=== PATIENT | female | born 1960 | race African-American/Black ===

== ENCOUNTER 2016-05-01 16:14 | Emergency (ER) | payer MEDICAID ==
[~2016-05-01] VITALS: Ht 162.6 cm; Wt 63.5 kg
[2016-05-01 20:22] VITALS: BP 157/93
[2016-05-01] MEDS ORDERED: ALBUTEROL SULF 2.5 MG/0.5ML(0.5%) NEB SOLN NEB ONE (20:30)
[2016-05-01] MEDS ORDERED: IPRATROPIUM BROM 0.5 MG/2.5ML INH SOL NEB ONE (20:30)
== END 2016-05-01 21:03 | disposition home or self-care (01) ==
LOC: ER 16:18
DX: J45.901 Unspecified asthma with (acute) exacerbation (principal); I10 Essential (primary) hypertension; E07.9 Disorder of thyroid, unspecified
CPT/HCPCS: 94640

== ENCOUNTER 2017-08-09 11:31 | Emergency (ER) | payer MEDICAID ==
[~2017-08-09] VITALS: Ht 162.6 cm; Wt 77.8 kg
[2017-08-09 13:39] LABS: Eosinophils # (auto) 0.8 uL
[2017-08-09 13:41] LABS: Basophils # (auto) 0 uL; Basophils % (auto) 0.6 % (0.0-2.0); Hematocrit 37.2 % (36.0-46.0); Hemoglobin 12.4 g/dL (12.2-16.2); Lymphocytes # (auto) 1.9 uL; Lymphocytes % (auto) 38.3 % (10.0-50.0); Mean Corpuscular Hemoglobin 38.7 pg (28.0-32.0); Mean Corpuscular Hgb Conc. 33.3 g/dL (32.0-36.0); Mean Corpuscular Volume 116.1 fL (80.0-100.0); Monocytes # (auto) 0.2 uL; Monocytes % (auto) 3.6 % (0.0-12.0); Neutrophils # (auto) 2.1 uL; Neutrophils % (auto) 40.9 % (37.0-80.0); Nucleated Red Blood Cells % 0.1 %; Platelet Count (auto) 227 10^3/uL (140-450); Red Cell Distribution Width 14.1 % (11.8-14.3)
[2017-08-09 14:05] LABS: Eosinophils % (auto) 16.6 % (0.0-7.0)
[2017-08-09 14:26] LABS: Alanine Aminotransferase 17 U/L (13-56); Albumin 3.9 g/dL (3.4-5.0); Alkaline Phosphatase 66 U/L (45-117); Anion Gap 8 (5-15); Aspartate Aminotransferase 12 U/L (15-37); BUN/Creatinine Ratio 15.5; Bilirubin, Total 0.3 mg/dL (0.2-1.0); Blood Urea Nitrogen 16 mg/dL (7-18); Calcium 8.5 mg/dL (8.5-10.1); Carbon Dioxide 27 mmol/L (21-32); Chloride 109 mmol/L (98-107); GFR African American 71 mL/min; GFR Non-African American 58 mL/min; Glucose 95 mg/dL (74-106); Potassium 4.3 mmol/L (3.5-5.1); Sodium 144 mmol/L (136-145); Total Protein 7.7 g/dL (6.4-8.2)
[2017-08-09 18:02] VITALS: BP 146/114
[2017-08-09 18:56] LABS: Urine Bacteria NONE SEEN /hpf (None Seen); Urine Blood Negative /uL (Negative); Urine Mucus FEW (None Seen); Urine Specific Gravity 1.025 (1.001-1.035); Urine WBC 2 /hpf (0 - 5)
== END 2017-08-10 00:10 | disposition home or self-care (01) ==
LOC: ER 11:31
DX: J20.9 Acute bronchitis, unspecified (principal); J45.909 Unspecified asthma, uncomplicated; E07.9 Disorder of thyroid, unspecified; I10 Essential (primary) hypertension
CPT/HCPCS: 36415; 71046; 80053; 81001; 84484; 85025; 93005

== ENCOUNTER 2017-11-05 19:33 | Emergency (ER) | payer MEDICAID ==
[~2017-11-05] VITALS: Ht 162.6 cm; Wt 75.8 kg
[2017-11-05 19:52] VITALS: BP 162/98
[2017-11-05] MEDS ORDERED: LIDOCAINE 1% HCL (LOCAL ANESTH.) INJ 20ML MDV ONE (23:57)
[2017-11-06] MEDS ORDERED: ALBUTEROL SULF 2.5 MG/0.5ML(0.5%) NEB SOLN NEB ONE
[2017-11-06] MEDS ORDERED: TRIAMCINOLONE 40MG/ML 1ML VIAL IM ONE
[2017-11-06] MEDS ORDERED: IPRATROPIUM BROM 0.5 MG/2.5ML INH SOL NEB ONE
== END 2017-11-06 00:35 | disposition home or self-care (01) ==
LOC: ER 19:33
DX: J45.909 Unspecified asthma, uncomplicated (principal); I10 Essential (primary) hypertension
CPT/HCPCS: 71046; 94640; 96372; 99284; J2001; J3301

== ENCOUNTER 2017-11-26 11:00 | Emergency (ER) | payer MEDICAID, OTHER ==
[~2017-11-26] VITALS: Ht 162.6 cm; Wt 99.8 kg
[2017-11-26 11:15] VITALS: BP 137/85
[2017-11-26] MEDS ORDERED: cefTRIAXone SOD 1,000 MG VL IM ONE (12:15)
== END 2017-11-26 12:34 | disposition home or self-care (01) ==
LOC: ER 11:00
DX: J02.9 Acute pharyngitis, unspecified (principal); J45.909 Unspecified asthma, uncomplicated; I10 Essential (primary) hypertension; E07.89 Other specified disorders of thyroid
CPT/HCPCS: 96372; 99283; J0696

== ENCOUNTER 2017-12-26 08:04 | Emergency (ER) | payer MEDICAID, OTHER ==
[~2017-12-26] VITALS: Ht 162.6 cm; Wt 76.7 kg
[2017-12-26 08:55] LABS: Urine Bacteria FEW /hpf (None Seen); Urine Blood Negative /uL (Negative); Urine Mucus FEW (None Seen); Urine Specific Gravity 1.026 (1.001-1.035); Urine WBC 4 /hpf (0 - 5)
[2017-12-26 09:43] LABS: Basophils # (auto) 0 uL; Eosinophils # (auto) 0.2 uL; Eosinophils % (auto) 3.9 % (0.0-7.0); Lymphocytes # (auto) 1.7 uL; Nucleated Red Blood Cells % 0.1 %
[2017-12-26 09:45] LABS: Hematocrit 37.1 % (36.0-46.0); Hemoglobin 12.3 g/dL (12.2-16.2); Lymphocytes % (auto) 37.1 % (10.0-50.0); Mean Corpuscular Hemoglobin 38.9 pg (28.0-32.0); Mean Corpuscular Hgb Conc. 33.1 g/dL (32.0-36.0); Monocytes # (auto) 0.2 uL; Monocytes % (auto) 4.8 % (0.0-12.0); Neutrophils # (auto) 2.5 uL; Neutrophils % (auto) 53.2 % (37.0-80.0); Platelet Count (auto) 182 10^3/uL (140-450); Red Blood Cells 3.15 10^6/uL (4.0-5.20); Red Cell Distribution Width 15.3 % (11.8-14.3); White Blood Cell 4.6 10^3/uL (4.4-10.8)
[2017-12-26 09:56] LABS: Mean Corpuscular Volume 117.7 fL (80.0-100.0)
[2017-12-26 10:09] LABS: Alanine Aminotransferase 22 U/L (13-56); Albumin 4.1 g/dL (3.4-5.0); Alkaline Phosphatase 56 U/L (45-117); Anion Gap 5 (5-15); Aspartate Aminotransferase 15 U/L (15-37); BUN/Creatinine Ratio 14.3; Bilirubin, Total 0.7 mg/dL (0.2-1.0); Blood Urea Nitrogen 17 mg/dL (7-18); Calcium 8.7 mg/dL (8.5-10.1); Carbon Dioxide 26 mmol/L (21-32); Chloride 111 mmol/L (98-107); GFR African American 60 mL/min; GFR Non-African American 49 mL/min; Glucose 92 mg/dL (74-106); Potassium 3.7 mmol/L (3.5-5.1); Sodium 142 mmol/L (136-145)
[2017-12-26 10:34] VITALS: BP 134/99
== END 2017-12-26 10:23 | disposition home or self-care (01) ==
LOC: ER 08:04
DX: N39.0 Urinary tract infection, site not specified (principal); E03.9 Hypothyroidism, unspecified; J45.909 Unspecified asthma, uncomplicated; I10 Essential (primary) hypertension
CPT/HCPCS: 36415; 71045; 80053; 81001; 84443; 84484; 85025; 93005; 94761

== ENCOUNTER 2018-03-01 16:59 | Emergency (ER) | payer MEDICAID ==
[~2018-03-01] VITALS: Ht 162.6 cm; Wt 74.4 kg
[2018-03-01 18:14] VITALS: BP 153/85
[2018-03-01] MEDS ORDERED: IPRATROPIUM BROM 0.5 MG/2.5ML INH SOL NEB ONE (19:15)
[2018-03-01] MEDS ORDERED: ALBUTEROL SULF 2.5 MG/0.5ML(0.5%) NEB SOLN NEB ONE (19:15)
[2018-03-01] MEDS ORDERED: methylPREDNISolone SOD SUCC 125 MG/2 ML VL IM ONE (19:15)
[2018-03-01 20:42] LABS: Basophils # (auto) 0 uL; Eosinophils # (auto) 0.4 uL; Hematocrit 37.6 % (36.0-46.0); Hemoglobin 12.6 g/dL (12.2-16.2); Lymphocytes # (auto) 2.5 uL; Monocytes # (auto) 0.2 uL; Red Blood Cells 3.17 10^6/uL (4.0-5.20)
[2018-03-01 20:45] LABS: Basophils % (auto) 0.8 % (0.0-2.0); Eosinophils % (auto) 8.1 % (0.0-7.0); Lymphocytes % (auto) 47.8 % (10.0-50.0); Mean Corpuscular Hemoglobin 39.7 pg (28.0-32.0); Mean Corpuscular Hgb Conc. 33.5 g/dL (32.0-36.0); Mean Corpuscular Volume 118.5 fL (80.0-100.0); Monocytes % (auto) 3.1 % (0.0-12.0); Neutrophils # (auto) 2.1 uL; Neutrophils % (auto) 40.2 % (37.0-80.0); Nucleated Red Blood Cells % 0.1 %; Platelet Count (auto) 181 10^3/uL (140-450); Red Cell Distribution Width 17.6 % (11.8-14.3); White Blood Cell 5.2 10^3/uL (4.4-10.8)
[2018-03-01 21:00] LABS: Albumin 4.3 g/dL (3.4-5.0); Potassium 3.7 mmol/L (3.5-5.1)
[2018-03-01 21:04] LABS: BUN/Creatinine Ratio 13.4; Bilirubin, Total 0.7 mg/dL (0.2-1.0); Total Protein 7.9 g/dL (6.4-8.2)
== END 2018-03-01 21:40 | disposition home or self-care (01) ==
LOC: ER 16:59
DX: J06.9 Acute upper respiratory infection, unspecified (principal); J45.909 Unspecified asthma, uncomplicated; I10 Essential (primary) hypertension; E07.9 Disorder of thyroid, unspecified
CPT/HCPCS: 36415; 76536; 80053; 83036; 84443; 85025; 94640; 96372; 99284; J2930; J7611; J7644

== ENCOUNTER 2018-04-24 12:27 | Emergency (ER) | payer MEDICAID ==
[~2018-04-24] VITALS: Ht 162.6 cm; Wt 71.8 kg
[2018-04-24 12:45] VITALS: BP 149/104
[2018-04-24] MEDS ORDERED: ALBUTEROL SULF 2.5 MG/0.5ML(0.5%) NEB SOLN NEB ONE (13:00)
[2018-04-24] MEDS ORDERED: IPRATROPIUM BROM 0.5 MG/2.5ML INH SOL NEB ONE (13:00)
[2018-04-24] MEDS ORDERED: HYDROcodone-ACET 5/325MG TAB PO ONE (16:00)
== END 2018-04-24 17:17 | disposition home or self-care (01) ==
LOC: ER 12:27
DX: J02.9 Acute pharyngitis, unspecified (principal); J45.909 Unspecified asthma, uncomplicated; I10 Essential (primary) hypertension; E07.9 Disorder of thyroid, unspecified
CPT/HCPCS: 71046; 94640; 99283; J7611; J7644

== ENCOUNTER 2018-06-22 15:50 | Emergency (ER) | payer MEDICAID ==
[~2018-06-22] VITALS: Ht 162.6 cm; Wt 65.8 kg
[2018-06-22 17:26] VITALS: BP 143/77
== END 2018-06-22 17:56 | disposition home or self-care (01) ==
LOC: ER 15:59
DX: J02.9 Acute pharyngitis, unspecified (principal); J20.9 Acute bronchitis, unspecified; J45.909 Unspecified asthma, uncomplicated; I10 Essential (primary) hypertension; Z86.39 Personal history of other endocrine, nutritional and metabolic disease

== ENCOUNTER 2018-07-25 04:45 | Emergency (ER) | payer MEDICAID ==
[~2018-07-25] VITALS: Ht 162.6 cm; Wt 68.0 kg
[2018-07-25] MEDS ORDERED: IPRATROPIUM BROM 0.5 MG/2.5ML INH SOL NEB ONE (07:15)
[2018-07-25] MEDS ORDERED: ALBUTEROL SULF 2.5 MG/0.5ML(0.5%) NEB SOLN NEB ONE (07:15)
[2018-07-25 07:38] LABS: Basophils # (auto) 0 uL; Basophils % (auto) 0.5 % (0.0-2.0); Eosinophils # (auto) 0.5 uL; Eosinophils % (auto) 12.6 % (0.0-7.0); Hematocrit 32.5 % (36.0-46.0); Hemoglobin 10.9 g/dL (12.2-16.2); Lymphocytes # (auto) 1.2 uL; Lymphocytes % (auto) 30.3 % (10.0-50.0); Mean Corpuscular Hemoglobin 35.8 pg (28.0-32.0); Mean Corpuscular Hgb Conc. 33.4 g/dL (32.0-36.0); Monocytes # (auto) 0.1 uL; Monocytes % (auto) 2.8 % (0.0-12.0); Neutrophils # (auto) 2.2 uL; Neutrophils % (auto) 53.8 % (37.0-80.0); Nucleated Red Blood Cells % 0.1 %; Platelet Count (auto) 129 10^3/uL (140-450); Red Blood Cells 3.04 10^6/uL (4.0-5.20); Red Cell Distribution Width 19.3 % (11.8-14.3); White Blood Cell 4.1 10^3/uL (4.4-10.8)
[2018-07-25 07:40] VITALS: BP 117/71
[2018-07-25 07:53] LABS: Potassium 3.7 mmol/L (3.5-5.1)
[2018-07-25 07:56] LABS: Albumin 3.4 g/dL (3.4-5.0); Calcium 7.8 mg/dL (8.5-10.1)
[2018-07-25 07:59] LABS: BUN/Creatinine Ratio 14.5
[2018-07-25 08:02] LABS: Bilirubin, Total 0.4 mg/dL (0.2-1.0); Total Protein 6.5 g/dL (6.4-8.2)
[2018-07-25] MEDS ORDERED: methylPREDNISolone SOD SUCC 125 MG/2 ML VL IV ONE (08:15)
== END 2018-07-25 08:37 | disposition home or self-care (01) ==
LOC: EDBD 04:45 → ER 04:45
DX: J45.909 Unspecified asthma, uncomplicated (principal); E87.0 Hyperosmolality and hypernatremia; I10 Essential (primary) hypertension; Z86.39 Personal history of other endocrine, nutritional and metabolic disease
CPT/HCPCS: 36415; 71045; 80053; 85025; 93005; 94640; 94761; 96374; 99284; J2930; J7611; J7644

== ENCOUNTER 2018-08-16 10:17 | Emergency (ER) | payer MEDICAID ==
[~2018-08-16] VITALS: Ht 162.6 cm; Wt 69.9 kg
[2018-08-16 10:20] VITALS: BP 117/84
[2018-08-16] MEDS ORDERED: IPRATROPIUM BROM 0.5 MG/2.5ML INH SOL NEB ONE (13:45)
[2018-08-16] MEDS ORDERED: ALBUTEROL SULF 2.5 MG/0.5ML(0.5%) NEB SOLN NEB ONE (13:45)
== END 2018-08-16 14:56 | disposition home or self-care (01) ==
LOC: ER 10:23
DX: H11.31 Conjunctival hemorrhage, right eye (principal); R06.2 Wheezing; I10 Essential (primary) hypertension; Z86.39 Personal history of other endocrine, nutritional and metabolic disease
CPT/HCPCS: 94640; 99283; J7030; J7611; J7644

== ENCOUNTER 2018-11-18 21:26 | Emergency (ER) | payer MEDICAID ==
[~2018-11-18] VITALS: Ht 162.6 cm; Wt 68.0 kg
[2018-11-19 04:05] LABS: White Blood Cell 3.8 10^3/uL (4.4-10.8)
[2018-11-19 04:07] LABS: Alanine Aminotransferase 18 U/L (13-56); Anion Gap 6 (5-15); Aspartate Aminotransferase 15 U/L (15-37); BUN/Creatinine Ratio 12.8; Blood Urea Nitrogen 15 mg/dL (7-18); Calcium 8.8 mg/dL (8.5-10.1); Carbon Dioxide 28 mmol/L (21-32); Chloride 109 mmol/L (98-107); GFR African American 61 mL/min; GFR Non-African American 50 mL/min; Glucose 93 mg/dL (74-106); Hematocrit 33.8 % (36.0-46.0); Hemoglobin 11.6 g/dL (12.2-16.2); Magnesium 2.4 mg/dL (1.6-2.6); Mean Corpuscular Hemoglobin 43.7 pg (28.0-32.0); Mean Corpuscular Hgb Conc. 34.3 g/dL (32.0-36.0); Mean Corpuscular Volume 127.3 fL (80.0-100.0); Platelet Count (auto) 117 10^3/uL (140-450); Potassium 3.5 mmol/L (3.5-5.1); Red Blood Cells 2.65 10^6/uL (4.0-5.20); Red Cell Distribution Width 15.6 % (11.8-14.3); Sodium 143 mmol/L (136-145)
[2018-11-19 04:12] LABS: Alkaline Phosphatase 42 U/L (45-117); Bilirubin, Total 0.4 mg/dL (0.2-1.0)
[2018-11-19 04:13] LABS: Band Neutrophils % (manual) 0; Basophils % (manual) 0 (0.0-2.0); Blast Cells 0; Metamyelocytes % 0; Myelocytes % 0; Promyelocytes % 0; Reactive Lymphocytes 0
[2018-11-19 04:19] LABS: Urine Bacteria NONE SEEN /hpf (None Seen); Urine Blood Negative /uL (Negative); Urine Mucus FEW (None Seen); Urine Specific Gravity 1.021 (1.001-1.035); Urine WBC 2 /hpf (0 - 5)
[2018-11-19 05:33] LABS: Eosinophils % (manual) 25 (0-7); Lymphocytes % (manual) 43 (10.0-50.0); Monocytes % (manual) 1 (0-12)
[2018-11-19 06:44] VITALS: BP 135/82
== END 2018-11-19 07:00 | disposition home or self-care (01) ==
LOC: ER 21:26
DX: M21.42 Flat foot [pes planus] (acquired), left foot (principal); M21.41 Flat foot [pes planus] (acquired), right foot; R51 Headache; G82.20 Paraplegia, unspecified; E03.9 Hypothyroidism, unspecified; J45.909 Unspecified asthma, uncomplicated; I10 Essential (primary) hypertension
CPT/HCPCS: 36415; 70450; 71045; 80053; 81001; 82962; 83735; 84443; 84484; 85007; 85027; 93005

== ENCOUNTER 2019-04-12 16:05 | Emergency (ER) | payer MEDICAID ==
[~2019-04-12] VITALS: Ht 162.6 cm; Wt 59.0 kg
[~2019-04-12 16:05] MED LIST: CHOL100040 PO; CYAN1TAB14 PO; GABA300C10 PO; GUAI600T23 PO; HYDR12.56 PO; LEVO88TA4 PO; MONT10TA34 OR
[2019-04-12] MEDS: IPRATROPIUM BROM 0.5 MG/2.5ML INH SOL NEB ONE (16:54)
[2019-04-12] MEDS: ALBUTEROL SULF 2.5 MG/0.5ML(0.5%) NEB SOLN NEB ONE (16:54)
[2019-04-12 20:10] LABS: Hematocrit 48.2 % (36.0-46.0); Hemoglobin 16.1 g/dL (12.2-16.2); Mean Corpuscular Hemoglobin 29.3 pg (28.0-32.0); Mean Corpuscular Hgb Conc. 33.4 g/dL (32.0-36.0); Mean Corpuscular Volume 87.7 fL (80.0-100.0); Platelet Count (auto) 226 10^3/uL (140-450); Red Cell Distribution Width 14.4 % (11.8-14.3); White Blood Cell 5.7 10^3/uL (4.4-10.8)
[2019-04-12 20:20] LABS: Band Neutrophils % (manual) 0; Basophils % (manual) 0 (0.0-2.0); Blast Cells 0; Metamyelocytes % 0; Myelocytes % 0; Promyelocytes % 0; Reactive Lymphocytes 0
[2019-04-12 20:24] LABS: Albumin 4.1 g/dL (3.4-5.0); Anion Gap 7 (5-15); Blood Urea Nitrogen 21 mg/dL (7-18); Calcium 9.8 mg/dL (8.5-10.1); Carbon Dioxide 29 mmol/L (21-32); Chloride 103 mmol/L (98-107); Glucose 86 mg/dL (74-106); Sodium 139 mmol/L (136-145)
[2019-04-12 20:28] LABS: Alanine Aminotransferase 14 U/L (13-56); Alkaline Phosphatase 70 U/L (45-117); Aspartate Aminotransferase 16 U/L (15-37); BUN/Creatinine Ratio 17.1; Bilirubin, Total 0.6 mg/dL (0.2-1.0); GFR African American 57 mL/min; GFR Non-African American 47 mL/min; Total Protein 8.5 g/dL (6.4-8.2)
[2019-04-12 20:33] LABS: Eosinophils % (manual) 25 (0-7); Lymphocytes % (manual) 32 (10.0-50.0); Monocytes % (manual) 6 (0-12)
[2019-04-12] MEDS: LIDOCAINE 1% HCL (LOCAL ANESTH.) INJ 20ML MDV ONE (21:54)
[2019-04-12] MEDS: cefTRIAXone W LIDOCAINE 1 GM IM IM ONE (21:55)
[2019-04-12] MEDS: cefTRIAXone SOD 1,000 MG VL IM ONE (21:55)
[2019-04-12 21:59] VITALS: BP 112/98
== END 2019-04-12 22:06 | disposition home or self-care (01) ==
LOC: ER 16:10
DX: J45.901 Unspecified asthma with (acute) exacerbation (principal); J20.9 Acute bronchitis, unspecified; I10 Essential (primary) hypertension; E07.9 Disorder of thyroid, unspecified
CPT/HCPCS: 36415; 71046; 80053; 83880; 84484; 85007; 85027; 94640; 96372; 99284; J0696; J2001; J7611; J7644

== ENCOUNTER 2019-05-25 19:29 | Emergency (ER) | payer MEDICAID ==
[~2019-05-25] VITALS: Ht 162.6 cm; Wt 61.2 kg
[2019-05-25] MEDS ORDERED: ALBUTEROL SULF 2.5 MG/0.5ML(0.5%) NEB SOLN NEB ONE ×3 (20:00→22:30)
[2019-05-25] MEDS ORDERED: IPRATROPIUM BROM 0.5 MG/2.5ML INH SOL NEB ONE ×3 (20:00→22:30)
[2019-05-25 20:53] VITALS: BP 202/88
[2019-05-25] MEDS ORDERED: DexAMETHasone SOD PHOS 10MG/1ML VIAL INJ IM ONE (21:15)
[2019-05-25 21:39] LABS: Hematocrit 44.8 % (36.0-46.0); Mean Corpuscular Hemoglobin 29.7 pg (28.0-32.0); Mean Corpuscular Hgb Conc. 33.5 g/dL (32.0-36.0); Mean Corpuscular Volume 88.5 fL (80.0-100.0); Platelet Count (auto) 232 10^3/uL (140-450); Red Blood Cells 5.06 10^6/uL (4.0-5.20); White Blood Cell 6.2 10^3/uL (4.4-10.8)
[2019-05-25 21:44] LABS: Band Neutrophils % (manual) 0; Basophils % (manual) 0 (0.0-2.0); Blast Cells 0; Metamyelocytes % 0; Monocytes % (manual) 0 (0-12); Myelocytes % 0; Promyelocytes % 0; Reactive Lymphocytes 0
[2019-05-25 21:54] LABS: INR 1.01 (0.9-1.15); Partial Thromboplastin Time 28.5 sec (23.64-32.05)
[2019-05-25 21:56] LABS: Lymphocytes % (manual) 42 (10.0-50.0)
[2019-05-25 21:59] LABS: Albumin 3.9 g/dL (3.4-5.0); Anion Gap 8 (5-15); Blood Urea Nitrogen 19 mg/dL (7-18); Calcium 9.4 mg/dL (8.5-10.1); Carbon Dioxide 28 mmol/L (21-32); Chloride 105 mmol/L (98-107); Glucose 108 mg/dL (74-106); Potassium 3.6 mmol/L (3.5-5.1); Sodium 141 mmol/L (136-145)
[2019-05-25 22:01] LABS: Eosinophils % (manual) 28 (0-7)
[2019-05-25 22:04] LABS: Alanine Aminotransferase 16 U/L (13-56); Alkaline Phosphatase 55 U/L (45-117); Aspartate Aminotransferase 15 U/L (15-37); BUN/Creatinine Ratio 15.4; Bilirubin, Total 0.4 mg/dL (0.2-1.0); GFR African American 57 mL/min; GFR Non-African American 47 mL/min; Total Protein 7.8 g/dL (6.4-8.2)
== END 2019-05-25 23:14 | disposition home or self-care (01) ==
LOC: ER 19:29
DX: J45.901 Unspecified asthma with (acute) exacerbation (principal); I10 Essential (primary) hypertension
CPT/HCPCS: 36415; 71045; 80053; 83880; 84484; 85007; 85027; 85610; 85730; 94640; 96372; 99285; J1100; J7611; J7644

== ENCOUNTER 2020-09-16 15:25 | Emergency (ER) | payer MEDICAID ==
[~2020-09-16] VITALS: Ht 162.6 cm; Wt 68.0 kg
[~2020-09-16 15:25] MED LIST changes: +MONT-8 OR; -MONT10TA34 OR
[2020-09-16] MEDS ORDERED: ALBUTEROL SULF 2.5 MG/0.5ML(0.5%) NEB SOLN NEB ONE (15:45)
[2020-09-16] MEDS ORDERED: methylPREDNISolone SOD SUCC 125 MG/2 ML VL IM ONE (15:45)
[2020-09-16] MEDS ORDERED: IPRATROPIUM BROM 0.5 MG/2.5ML INH SOL NEB ONE (15:45)
[2020-09-16 16:00] VITALS: BP 151/96
== END 2020-09-16 18:43 | disposition home or self-care (01) ==
LOC: ER 15:25
DX: J44.1 Chronic obstructive pulmonary disease with (acute) exacerbation (principal); I10 Essential (primary) hypertension
CPT/HCPCS: 71046; 94640; 96372; 99283; J2930; J7644

== ENCOUNTER 2021-02-09 07:20 | Inpatient (IN) | payer MEDICAID ==
[~2021-02-09] VITALS: Ht 162.6 cm; Wt 74.8 kg
[2021-02-09] MEDS ORDERED: IPRATROPIUM BROM 0.5 MG/2.5ML INH SOL NEB ONE (07:45)
[2021-02-09] MEDS ORDERED: methylPREDNISolone SOD SUCC 125 MG/2 ML VL IV ONE (07:45)
[2021-02-09] MEDS ORDERED: ALBUTEROL SULF 2.5 MG/0.5ML(0.5%) NEB SOLN NEB ONE ×2 (07:45→11:00)
[2021-02-09 09:02] LABS: Basophils # (auto) 0 10 ^3/uL (0-0.2); Basophils % (auto) 0.7 % (0.0-2.0); Eosinophils # (auto) 0.6 10 ^3/uL (0-0.8); Eosinophils % (auto) 11.7 % (0.0-7.0); Hematocrit 39.2 % (36.0-46.0); Hemoglobin 13.1 g/dL (12.2-16.2); Lymphocytes # (auto) 0.8 10 ^3/uL (0.4-5.4); Lymphocytes % (auto) 16.8 % (10.0-50.0); Mean Corpuscular Hemoglobin 38.5 pg (28.0-32.0); Mean Corpuscular Hgb Conc. 33.5 g/dL (32.0-36.0); Mean Corpuscular Volume 115.1 fL (80.0-100.0); Monocytes # (auto) 0.2 10 ^3/uL (0-1.3); Monocytes % (auto) 4.2 % (0.0-12.0); Neutrophils # (auto) 3.2 10 ^3/uL (1.6-8.6); Neutrophils % (auto) 66.6 % (37.0-80.0); Nucleated Red Blood Cells % 0.2 %; Red Cell Distribution Width 16.5 % (11.8-14.3); White Blood Cell 4.7 10^3/uL (4.4-10.8)
[2021-02-09 09:12] LABS: Albumin 3.7 g/dL (3.4-5.0); Calcium 8.7 mg/dL (8.5-10.1); Potassium 3.8 mmol/L (3.5-5.1)
[2021-02-09 09:17] LABS: BUN/Creatinine Ratio 10.9; Bilirubin, Total 0.7 mg/dL (0.2-1.0); Total Protein 7.7 g/dL (6.4-8.2)
[2021-02-09] MEDS ORDERED: ALBUTEROL SULF 2.5 MG/0.5ML(0.5%) NEB SOLN ONE (10:55)
[2021-02-09] MEDS ORDERED: methylPREDNISolone SOD SUCC 125 MG/2 ML VL IM ONE (11:00)
[2021-02-09] MEDS ORDERED: MAGNESIUM SULFATE 1GM/100ML 100 ML IV ONE (11:45)
[2021-02-09] MEDS ORDERED: cefTRIAXone 1GM/50ML D5W 50 ML IV ONE (14:00)
[2021-02-09] MEDS ORDERED: DOXYCYCLINE 100MG/250ML 250 ML IV ONE (14:00)
[2021-02-09] MEDS ORDERED: NITROGLYCERIN 0.4 MG SL TAB SL PRN ×2 (17:00→18:00)
[2021-02-09] MEDS ORDERED: MORPHINE SULFATE INJECTION 2 MG/ML SYRG IV PRN ×3 (17:00→18:00)
[2021-02-09] MEDS ORDERED: PROMETHAZINE-DM 5 ML ORAL SYRUP GT PRN (18:00)
[2021-02-09] MEDS ORDERED: HYDROcodone-ACET 5/325MG TAB PO PRN (18:00)
[2021-02-09] MEDS ORDERED: LABETALOL HCL 5 MG/ML 4ML SYRINGE IV PRN (18:00)
[2021-02-09] MEDS ORDERED: ALUM & MAG HYDROX-SIMETH LIQ(MAALOX) 30 ML PO PRN (18:00)
[2021-02-09] MEDS ORDERED: DOCUSATE SOD 100 MG CAP PO PRN (18:00)
[2021-02-09] MEDS ORDERED: BUDESONIDE (INHALATION) 0.5 MG/2 ML NEB NEB ONE (18:00)
[2021-02-09] MEDS ORDERED: ONDANSETRON HCL 4 MG/2 ML VIAL IV PRN (18:00)
[2021-02-09] MEDS ORDERED: LORazepam 0.5 MG TAB PO PRN (18:00)
[2021-02-09] MEDS ORDERED: ACETAMINOPHEN 325 MG TAB PO PRN (18:00)
[2021-02-09] MEDS ORDERED: B-COMPLEX W/ C & FOLIC ACID(NEPHROVITE TAB) PO ONE (18:00)
[2021-02-09] MEDS ORDERED: SODIUM CHLORIDE 0.9% 1,000 ML IV SCH (18:15)
[2021-02-09] MEDS: ALBUTEROL SULF 2.5 MG/0.5ML(0.5%) NEB SOLN NEB SCH ×2 (19:00→22:40)
[2021-02-09] MEDS: IPRATROPIUM BROM 0.5 MG/2.5ML INH SOL NEB SCH ×2 (19:00→22:40)
[2021-02-09] MEDS: FUROSEMIDE 20 MG/2 ML VIAL IV SCH (20:15)
[2021-02-09 20:18] LABS: Cholesterol 245 mg/dL (< 200)
[2021-02-09 20:21] LABS: HDL Cholesterol 93 mg/dL (40-59); LDL Cholesterol 136 mg/dL (< 100); Triglycerides 43 mg/dL (< 150)
[2021-02-09] MEDS: AZITHROMYCIN 500MG/ 250ML 250 ML IV ONE ×2 (20:44→20:45)
[2021-02-09] MEDS: BENAZEPRIL HCL 10 MG TAB PO ONE (20:45)
[2021-02-09] MEDS: FAMOTIDINE (10MG/ML) 2ML VL IV ONE (20:45)
[2021-02-09] MEDS: methylPREDNISolone SOD SUCC 40 MG/ML VL IV SCH (23:20)
[2021-02-09] MEDS: POTASSIUM CHL 20 Meq TABLET PO SCH (23:21)
[2021-02-09] MEDS: MONTELUKAST SODIUM 10 MG TAB PO SCH (23:21)
[2021-02-10 00:57] VITALS: BP 109/67
[2021-02-10] MEDS: IPRATROPIUM BROM 0.5 MG/2.5ML INH SOL NEB SCH ×6 (02:37→22:06)
[2021-02-10] MEDS: ALBUTEROL SULF 2.5 MG/0.5ML(0.5%) NEB SOLN NEB SCH ×6 (02:37→22:06)
[2021-02-10] MEDS ORDERED: LEVO112T4 PO (05:58)
[2021-02-10] MEDS ORDERED: CYCL-839 PO (05:58)
[2021-02-10] MEDS ORDERED: CETI10TA2 PO (05:58)
[2021-02-10] MEDS ORDERED: TRIATAB3 PO (05:58)
[2021-02-10] MEDS: methylPREDNISolone SOD SUCC 40 MG/ML VL IV SCH ×3 (06:07→23:23)
[2021-02-10] MEDS: FUROSEMIDE 20 MG/2 ML VIAL IV SCH (06:12)
[2021-02-10] MEDS: BUDESONIDE (INHALATION) 0.5 MG/2 ML NEB NEB SCH ×2 (07:15→18:31)
[2021-02-10 09:24] LABS: Basophils # (auto) 0 10 ^3/uL (0-0.2); Basophils % (auto) 0.1 % (0.0-2.0); Eosinophils # (auto) 0 10 ^3/uL (0-0.8); Hematocrit 41.7 % (36.0-46.0); Hemoglobin 13.9 g/dL (12.2-16.2); Lymphocytes % (auto) 9.3 % (10.0-50.0); Mean Corpuscular Hemoglobin 38.3 pg (28.0-32.0); Mean Corpuscular Hgb Conc. 33.2 g/dL (32.0-36.0); Monocytes # (auto) 0.2 10 ^3/uL (0-1.3); Monocytes % (auto) 1.4 % (0.0-12.0); Neutrophils % (auto) 89.2 % (37.0-80.0); Nucleated Red Blood Cells % 0.1 %; Red Blood Cells 3.62 10^6/uL (4.0-5.20); Red Cell Distribution Width 16.7 % (11.8-14.3); White Blood Cell 11.2 10^3/uL (4.4-10.8)
[2021-02-10 09:29] LABS: Albumin 4.2 g/dL (3.4-5.0); Calcium 9.2 mg/dL (8.5-10.1); Magnesium 2.7 mg/dL (1.6-2.6); Mean Corpuscular Volume 115.3 fL (80.0-100.0)
[2021-02-10 09:31] LABS: INR 0.99 (0.9-1.15)
[2021-02-10 09:39] LABS: BUN/Creatinine Ratio 12.7; Bilirubin, Total 0.7 mg/dL (0.2-1.0); Phosphorus 2.8 mg/dL (2.5-4.90); Total Protein 8.2 g/dL (6.4-8.2)
[2021-02-10] MEDS: POTASSIUM CHL 20 Meq TABLET PO SCH (10:00)
[2021-02-10] MEDS: B-COMPLEX W/ C & FOLIC ACID(NEPHROVITE TAB) PO SCH (10:00)
[2021-02-10] MEDS: SERTRALINE HCL 50 MG TAB PO SCH (10:00)
[2021-02-10] MEDS: CHOLECALCIFEROL (VITD3) 2,000 UNIT CAP/TAB PO SCH (10:00)
[2021-02-10] MEDS: AZITHROMYCIN 500MG/ 250ML 250 ML IV SCH (10:00)
[2021-02-10] MEDS: FAMOTIDINE (10MG/ML) 2ML VL IV SCH (10:00)
[2021-02-10] MEDS ORDERED: BENAZEPRIL HCL 10 MG TAB PO SCH (10:00)
[2021-02-10] MEDS: ENOXAPARIN SOD 40 MG/0.4 ML SYRINGE SC SCH (10:00)
[2021-02-10] MEDS ORDERED: hydrALAZINE HCL 20 MG/ML VL IV PRN (12:30)
[2021-02-10 13:00] VITALS: BP 124/74
[2021-02-10] MEDS: SODIUM CHLORIDE 0.9% 1,000 ML IV SCH (17:12)
[2021-02-10 17:19] VITALS: BP 111/77
[2021-02-10] MEDS: ACETYLCYSTEINE 20%(200MG/ML) SOL 4ML NEB SCH (22:06)
[2021-02-10] MEDS: MONTELUKAST SODIUM 10 MG TAB PO SCH (23:20)
[2021-02-11] MEDS: SODIUM CHLORIDE 0.9% 1,000 ML IV SCH ×3 (01:50→15:15)
[2021-02-11] MEDS: IPRATROPIUM BROM 0.5 MG/2.5ML INH SOL NEB SCH ×5 (02:11→18:51)
[2021-02-11] MEDS: ALBUTEROL SULF 2.5 MG/0.5ML(0.5%) NEB SOLN NEB SCH ×5 (02:11→18:51)
[2021-02-11] MEDS: ACETYLCYSTEINE 20%(200MG/ML) SOL 4ML NEB SCH ×2 (05:58→14:15)
[2021-02-11] MEDS: methylPREDNISolone SOD SUCC 40 MG/ML VL IV SCH ×3 (06:15→22:46)
[2021-02-11 07:06] LABS: Basophils # (auto) 0 10 ^3/uL (0-0.2); Basophils % (auto) 0.3 % (0.0-2.0); Eosinophils # (auto) 0.1 10 ^3/uL (0-0.8); Eosinophils % (auto) 0.6 % (0.0-7.0); Hematocrit 35.8 % (36.0-46.0); Lymphocytes % (auto) 21.6 % (10.0-50.0); Mean Corpuscular Hemoglobin 38.8 pg (28.0-32.0); Mean Corpuscular Hgb Conc. 33.5 g/dL (32.0-36.0); Monocytes # (auto) 0.5 10 ^3/uL (0-1.3); Monocytes % (auto) 5.2 % (0.0-12.0); Neutrophils # (auto) 6.7 10 ^3/uL (1.6-8.6); Neutrophils % (auto) 72.3 % (37.0-80.0); Nucleated Red Blood Cells % 0.1 %; Red Blood Cells 3.09 10^6/uL (4.0-5.20); Red Cell Distribution Width 16.4 % (11.8-14.3); White Blood Cell 9.3 10^3/uL (4.4-10.8)
[2021-02-11 07:13] LABS: Potassium 4.7 mmol/L (3.5-5.1)
[2021-02-11 07:20] LABS: BUN/Creatinine Ratio 24.6; Calcium 8.5 mg/dL (8.5-10.1); Magnesium 2.6 mg/dL (1.6-2.6)
[2021-02-11 09:00] VITALS: BP 105/66
[2021-02-11] MEDS: ENOXAPARIN SOD 40 MG/0.4 ML SYRINGE SC SCH (09:14)
[2021-02-11] MEDS: B-COMPLEX W/ C & FOLIC ACID(NEPHROVITE TAB) PO SCH (09:15)
[2021-02-11] MEDS: CHOLECALCIFEROL (VITD3) 2,000 UNIT CAP/TAB PO SCH (09:15)
[2021-02-11] MEDS: SERTRALINE HCL 50 MG TAB PO SCH (09:15)
[2021-02-11] MEDS: FAMOTIDINE (10MG/ML) 2ML VL IV SCH (09:15)
[2021-02-11] MEDS: AZITHROMYCIN 500MG/ 250ML 250 ML IV SCH (09:16)
[2021-02-11] MEDS: BUDESONIDE (INHALATION) 0.5 MG/2 ML NEB NEB SCH (10:20)
[2021-02-11 13:00] VITALS: BP 97/59
[2021-02-11 22:00] VITALS: BP 116/65
[2021-02-11] MEDS: MONTELUKAST SODIUM 10 MG TAB PO SCH (22:47)
[2021-02-12] MEDS: BUDESONIDE (INHALATION) 0.5 MG/2 ML NEB NEB SCH ×2 (00:01→10:32)
[2021-02-12] MEDS: ACETYLCYSTEINE 20%(200MG/ML) SOL 4ML NEB SCH ×3 (00:01→14:02)
[2021-02-12] MEDS: IPRATROPIUM BROM 0.5 MG/2.5ML INH SOL NEB SCH ×5 (00:01→14:02)
[2021-02-12] MEDS: ALBUTEROL SULF 2.5 MG/0.5ML(0.5%) NEB SOLN NEB SCH ×5 (03:00→14:02)
[2021-02-12 05:00] VITALS: BP 122/80
[2021-02-12] MEDS: SODIUM CHLORIDE 0.9% 1,000 ML IV SCH (07:55)
[2021-02-12 08:01] LABS: Calcium 8.9 mg/dL (8.5-10.1)
[2021-02-12 08:04] LABS: BUN/Creatinine Ratio 19.5
[2021-02-12 08:36] LABS: Potassium 5.6 mmol/L (3.5-5.1)
[2021-02-12 09:00] VITALS: BP 129/83
[2021-02-12 09:59] VITALS: BP 122/80
[2021-02-12] MEDS: SERTRALINE HCL 50 MG TAB PO SCH (10:00)
[2021-02-12] MEDS: methylPREDNISolone SOD SUCC 40 MG/ML VL IV SCH (10:05)
[2021-02-12] MEDS: B-COMPLEX W/ C & FOLIC ACID(NEPHROVITE TAB) PO SCH (10:06)
[2021-02-12] MEDS: AZITHROMYCIN 500MG/ 250ML 250 ML IV SCH (10:06)
[2021-02-12] MEDS: ENOXAPARIN SOD 40 MG/0.4 ML SYRINGE SC SCH (10:07)
[2021-02-12] MEDS: CHOLECALCIFEROL (VITD3) 2,000 UNIT CAP/TAB PO SCH (10:07)
[2021-02-12] MEDS ORDERED: SODIUM ZIRCONIUM CYCL 10 GM PAK PO ONE (13:30)
[2021-02-12] MEDS ORDERED: ALBUAER3 IN (13:36)
[2021-02-12] MEDS ORDERED: PRED20TA2 PO (13:36)
[2021-02-12] MEDS ORDERED: DEXT1SYP9 PO (13:36)
[2021-02-12] MEDS ORDERED: AZIT500T PO (13:36)
[2021-02-12 15:30] VITALS: BP 147/85
[2021-02-12 17:00] VITALS: BP 139/75
== END 2021-02-12 17:50 | disposition home or self-care (01) | DRG 145 ==
LOC: ER 07:20 → OVERFLOW 16:51 → TELE-WESTW 23:02 → OVERFLOW 23:30 → WEST WING 02-10 05:14
PROVIDERS: ADMIT Hospitalist; ATTEND Internal Medicine
DX: J20.9 Acute bronchitis, unspecified (principal); N17.0 Acute kidney failure with tubular necrosis; J96.01 Acute respiratory failure with hypoxia; J44.0 Chronic obstructive pulmonary disease with (acute) lower respiratory infection; J45.41 Moderate persistent asthma with (acute) exacerbation; D72.10 Eosinophilia, unspecified; D75.89 Other specified diseases of blood and blood-forming organs; E03.9 Hypothyroidism, unspecified; F32.9 Major depressive disorder, single episode, unspecified; N18.31 Chronic kidney disease, stage 3a; Z20.822 Contact with and (suspected) exposure to COVID-19; D18.03 Hemangioma of intra-abdominal structures; E78.5 Hyperlipidemia, unspecified; I12.9 Hypertensive chronic kidney disease with stage 1 through stage 4 chronic kidney disease, or unspecified chronic kidney disease; K76.9 Liver disease, unspecified; Z79.899 Other long term (current) drug therapy; Z83.3 Family history of diabetes mellitus
CPT/HCPCS: 36415; 71045; 71250; 74183; 76705; 76775; 80048; 80053; 80061; 83036; 83735; 83880; 84100; 84132; 84439; 84443; 84484; 85025; 85610; 85730; 87040; 87426; 94640; 94644; 96365; 96367; 96375; G0378; J3490

== ENCOUNTER 2021-09-07 13:12 | Emergency (ER) | payer MEDICAID ==
[~2021-09-07] VITALS: Ht 162.6 cm; Wt 72.1 kg
[~2021-09-07 13:12] MED LIST changes: +ALBUAER3 IN; +AZIT500T PO; +CETI10TA2 PO; +CYCL-839 PO; +DEXT1SYP9 PO; -GABA300C10 PO; -GUAI600T23 PO; -HYDR12.56 PO; +LEVO112T4 PO; -LEVO88TA4 PO; +PRED20TA2 PO; +TRIATAB3 PO
[2021-09-07] MEDS ORDERED: IBUPROFEN 800 MG TAB PO ONE (13:45)
[2021-09-07] MEDS ORDERED: IBUP800T27 PO (17:51)
[2021-09-07] MEDS ORDERED: HYDR-4798 PO (17:51)
[2021-09-07 18:08] VITALS: BP 132/82
== END 2021-09-07 18:10 | disposition home or self-care (01) ==
LOC: ER 13:14
DX: S33.5XXA Sprain of ligaments of lumbar spine, initial encounter (principal); S00.93XA Contusion of unspecified part of head, initial encounter; I10 Essential (primary) hypertension; E03.9 Hypothyroidism, unspecified; J44.9 Chronic obstructive pulmonary disease, unspecified; Z79.899 Other long term (current) drug therapy; W20.8XXA Other cause of strike by thrown, projected or falling object, initial encounter; Y93.89 Activity, other specified; Y92.89 Other specified places as the place of occurrence of the external cause; Y99.8 Other external cause status
CPT/HCPCS: 70450; 72131; 99284; J7030

== ENCOUNTER 2022-02-01 09:11 | Emergency (ER) | payer MEDICAID ==
[~2022-02-01] VITALS: Ht 162.6 cm; Wt 76.2 kg
[~2022-02-01 09:11] MED LIST changes: +HYDR-4798 PO; +IBUP800T27 PO
[2022-02-01 10:04] LABS: Basophils # (auto) 0 10 ^3/uL (0-0.2); Basophils % (auto) 0.6 % (0.0-2.0); Eosinophils # (auto) 0.4 10 ^3/uL (0-0.8); Eosinophils % (auto) 10.8 % (0.0-7.0); Hematocrit 36.4 % (36.0-46.0); Hemoglobin 12.4 g/dL (12.2-16.2); Lymphocytes # (auto) 1.6 10 ^3/uL (0.4-5.4); Lymphocytes % (auto) 47.9 % (10.0-50.0); Mean Corpuscular Hemoglobin 38.6 pg (28.0-32.0); Mean Corpuscular Hgb Conc. 34.1 g/dL (32.0-36.0); Mean Corpuscular Volume 113.1 fL (80.0-100.0); Monocytes # (auto) 0.1 10 ^3/uL (0-1.3); Monocytes % (auto) 2.7 % (0.0-12.0); Neutrophils # (auto) 1.3 10 ^3/uL (1.6-8.6); Nucleated Red Blood Cells % 0.1 %; Red Blood Cells 3.22 10^6/uL (4.0-5.20); White Blood Cell 3.3 10^3/uL (4.4-10.8)
[2022-02-01 10:22] LABS: Urine Bacteria NONE SEEN /hpf (None Seen); Urine Blood Negative /uL (Negative); Urine Mucus FEW (None Seen); Urine Specific Gravity 1.025 (1.001-1.035); Urine WBC 5 /hpf (0 - 5)
[2022-02-01 10:27] LABS: Albumin 4.1 g/dL (3.4-5.0); Calcium 8.8 mg/dL (8.5-10.1); Potassium 3.5 mmol/L (3.5-5.1)
[2022-02-01 10:29] LABS: BUN/Creatinine Ratio 19.7; Bilirubin, Total 0.8 mg/dL (0.2-1.0); Total Protein 7.6 g/dL (6.4-8.2)
[2022-02-01] MEDS ORDERED: NITR-87 PO (11:17)
[2022-02-01] MEDS ORDERED: HYD25TP TOP (11:17)
[2022-02-01 13:40] VITALS: BP 128/65
== END 2022-02-01 13:55 | disposition home or self-care (01) ==
LOC: ER 09:11
DX: N39.0 Urinary tract infection, site not specified (principal); L30.9 Dermatitis, unspecified; J44.9 Chronic obstructive pulmonary disease, unspecified; I10 Essential (primary) hypertension; Z79.899 Other long term (current) drug therapy
CPT/HCPCS: 36415; 80053; 81001; 84484; 85025; 93005

== ENCOUNTER 2022-02-20 12:49 | Emergency (ER) | payer MEDICAID ==
[~2022-02-20] VITALS: Ht 162.6 cm; Wt 76.2 kg
[~2022-02-20 12:49] MED LIST changes: +HYD25TP TOP; +NITR-87 PO
[2022-02-20 13:24] VITALS: BP 153/83
[2022-02-20 14:15] LABS: Urine Bacteria NONE SEEN /hpf (None Seen); Urine Blood Negative /uL (Negative); Urine Mucus FEW (None Seen); Urine Specific Gravity 1.028 (1.001-1.035); Urine WBC 1 /hpf (0 - 5)
[2022-02-20 15:06] LABS: Basophils # (auto) 0 10 ^3/uL (0-0.2); Eosinophils # (auto) 0.3 10 ^3/uL (0-0.8); Hemoglobin 12.1 g/dL (12.2-16.2); Neutrophils # (auto) 1.2 10 ^3/uL (1.6-8.6); Nucleated Red Blood Cells % 0.1 %; White Blood Cell 2.9 10^3/uL (4.4-10.8)
[2022-02-20 15:09] LABS: Eosinophils % (auto) 11.2 % (0.0-7.0); Hematocrit 36.3 % (36.0-46.0); Lymphocytes # (auto) 1.3 10 ^3/uL (0.4-5.4); Lymphocytes % (auto) 45.8 % (10.0-50.0); Mean Corpuscular Hemoglobin 37.7 pg (28.0-32.0); Mean Corpuscular Hgb Conc. 33.2 g/dL (32.0-36.0); Mean Corpuscular Volume 113.6 fL (80.0-100.0); Monocytes # (auto) 0.1 10 ^3/uL (0-1.3); Monocytes % (auto) 1.9 % (0.0-12.0); Neutrophils % (auto) 40.1 % (37.0-80.0); Red Blood Cells 3.19 10^6/uL (4.0-5.20); Red Cell Distribution Width 19.7 % (11.8-14.3)
[2022-02-20 15:20] LABS: Amylase 67 U/L (25-115); Lipase 80 U/L (73-393)
[2022-02-20 15:23] LABS: Albumin 4.1 g/dL (3.4-5.0); Potassium 3.7 mmol/L (3.5-5.1)
[2022-02-20 15:27] LABS: BUN/Creatinine Ratio 17.2; Bilirubin, Total 0.6 mg/dL (0.2-1.0); Total Protein 7.4 g/dL (6.4-8.2)
== END 2022-02-20 15:55 | disposition home or self-care (01) ==
LOC: ER 12:49
DX: R10.13 Epigastric pain (principal); I10 Essential (primary) hypertension; J44.9 Chronic obstructive pulmonary disease, unspecified; E03.9 Hypothyroidism, unspecified; Z79.1 Long term (current) use of non-steroidal anti-inflammatories (NSAID); Z79.899 Other long term (current) drug therapy
CPT/HCPCS: 36415; 76705; 80053; 81001; 82150; 83690; 85025; 93005

== ENCOUNTER 2022-04-12 21:59 | Inpatient (IN) | payer MEDICAID ==
[~2022-04-12] VITALS: Ht 184.4 cm; Wt 79.7 kg
[2022-04-12] MEDS ORDERED: MAGNESIUM SULFATE 1GM/100ML 100 ML IV ONE (22:15)
[2022-04-12] MEDS ORDERED: LACTATED RINGER'S 1,000 ML IV ONE (22:15)
[2022-04-12 22:46] LABS: Hemoglobin 8.4 g/dL (12.2-16.2); Mean Corpuscular Volume 113.6 fL (80.0-100.0)
[2022-04-12 22:49] LABS: Hematocrit 23.8 % (36.0-46.0); Mean Corpuscular Hemoglobin 40.2 pg (28.0-32.0); Mean Corpuscular Hgb Conc. 35.3 g/dL (32.0-36.0)
[2022-04-12 22:52] LABS: Albumin 4.7 g/dL (3.4-5.0); Calcium 8.6 mg/dL (8.5-10.1); Magnesium 2.6 mg/dL (1.6-2.6); Potassium 3.8 mmol/L (3.5-5.1); Red Cell Distribution Width 23.2 % (11.8-14.3)
[2022-04-12 22:54] LABS: Band Neutrophils % (manual) 0; Basophils % (manual) 0 (0.0-2.0); Blast Cells 0; Metamyelocytes % 0; Myelocytes % 0; Promyelocytes % 0; Reactive Lymphocytes 0
[2022-04-12 22:56] LABS: BUN/Creatinine Ratio 21.9; Bilirubin, Total 1.4 mg/dL (0.2-1.0); Total Protein 7.1 g/dL (6.4-8.2)
[2022-04-12 23:04] LABS: INR 0.99 (0.9-1.15); Partial Thromboplastin Time 22.4 sec (24.6-33.4)
[2022-04-12 23:35] LABS: Eosinophils % (manual) 1 (0-7); Lymphocytes % (manual) 70 (10.0-50.0); Monocytes % (manual) 2 (0-12)
[2022-04-13] MEDS ORDERED: MORPHINE SULFATE INJ 2 MG/ml SYRG IV PRN (02:30)
[2022-04-13] MEDS ORDERED: HYDROcodone-ACET 5/325MG TAB PO PRN ×2 (02:30→11:15)
[2022-04-13] MEDS ORDERED: ACETAMINOPHEN 325 MG TAB PO PRN (02:30)
[2022-04-13] MEDS ORDERED: TEMAZEPAM 15 MG CAP PO PRN (02:30)
[2022-04-13] MEDS ORDERED: DOCUSATE SOD 100 MG CAP PO PRN ×2 (02:30→11:15)
[2022-04-13] MEDS ORDERED: LORazepam 0.5 MG TAB PO PRN (02:30)
[2022-04-13] MEDS ORDERED: CYANOCOBALAMIN (B-12) 1000 MCG/1 ML VIAL IM ONE (02:30)
[2022-04-13] MEDS ORDERED: ONDANSETRON HCL 4 MG/2 ML VIAL IV PRN ×2 (02:30→11:15)
[2022-04-13] MEDS ORDERED: MAALOX PLUS or MAALOX 30 ML PO PRN (02:30)
[2022-04-13] MEDS: SODIUM CHLORIDE 0.9% 1,000 ML IV SCH ×2 (02:30→07:40)
[2022-04-13 06:40] LABS: BUN/Creatinine Ratio 23.5; Potassium 3.6 mmol/L (3.5-5.1)
[2022-04-13 07:34] LABS: Basophils # (auto) 0 10 ^3/uL (0-0.2); Eosinophils # (auto) 0.1 10 ^3/uL (0-0.8); Hemoglobin 7.4 g/dL (12.2-16.2); Monocytes # (auto) 0 10 ^3/uL (0-1.3); Neutrophils # (auto) 0.5 10 ^3/uL (1.6-8.6)
[2022-04-13 07:36] LABS: Basophils % (auto) 0.4 % (0.0-2.0); Eosinophils % (auto) 4.8 % (0.0-7.0); Mean Corpuscular Hemoglobin 40.5 pg (28.0-32.0); Mean Corpuscular Hgb Conc. 35.3 g/dL (32.0-36.0); Mean Corpuscular Volume 114.8 fL (80.0-100.0); Monocytes % (auto) 1.7 % (0.0-12.0); Neutrophils % (auto) 32.2 % (37.0-80.0); Nucleated Red Blood Cells % 0.9 %; Red Blood Cells 1.83 10^6/uL (4.0-5.20)
[2022-04-13 07:54] LABS: Lymphocytes % (auto) 60.9 % (10.0-50.0); Red Cell Distribution Width 23.3 % (11.8-14.3)
[2022-04-13 08:00] LABS: White Blood Cell 1.6 10^3/uL (4.4-10.8)
[2022-04-13] MEDS: PYRIDOXINE HCL 50 MG TAB PO SCH (09:28)
[2022-04-13] MEDS: FOLIC ACID 1 MG TAB PO SCH (09:28)
[2022-04-13] MEDS ORDERED: ACETAMINOPHEN 500 MG TAB PO PRN (11:15)
[2022-04-13] MEDS ORDERED: IPRATROPIUM BROM 0.5 MG/2.5ML INH SOL NEB PRN (11:15)
[2022-04-13] MEDS ORDERED: ALBUTEROL SULF 2.5 MG/0.5ML(0.5%) NEB SOLN NEB PRN (11:15)
[2022-04-13 14:56] VITALS: BP 114/65
[2022-04-13 22:23] VITALS: BP 121/61
[2022-04-14 05:00] VITALS: BP 93/52
[2022-04-14 09:00] VITALS: BP 109/62
[2022-04-14 10:01] LABS: Hematocrit 21.2 % (36.0-46.0); Hemoglobin 7.4 g/dL (12.2-16.2); Mean Corpuscular Hemoglobin 39.3 pg (28.0-32.0); Mean Corpuscular Hgb Conc. 34.7 g/dL (32.0-36.0); Mean Corpuscular Volume 113.1 fL (80.0-100.0); Red Blood Cells 1.88 10^6/uL (4.0-5.20)
[2022-04-14] MEDS: FOLIC ACID 1 MG TAB PO SCH (10:03)
[2022-04-14] MEDS: PYRIDOXINE HCL 50 MG TAB PO SCH (10:03)
[2022-04-14 10:11] LABS: Calcium 8.6 mg/dL (8.5-10.1)
[2022-04-14 10:14] LABS: % Iron Saturation 46.5 % (15-50)
[2022-04-14 10:15] LABS: BUN/Creatinine Ratio 16.7; Total Protein 6.4 g/dL (6.4-8.2)
[2022-04-14 10:53] LABS: Red Cell Distribution Width 23.5 % (11.8-14.3)
[2022-04-14 10:55] LABS: Band Neutrophils % (manual) 0; Basophils % (manual) 0 (0.0-2.0); Blast Cells 0; Metamyelocytes % 0; Myelocytes % 0; Promyelocytes % 0; Reactive Lymphocytes 0
[2022-04-14 13:00] VITALS: BP 114/53
[2022-04-14 13:43] LABS: Eosinophils % (manual) 1 (0-7); Lymphocytes % (manual) 60 (10.0-50.0); Monocytes % (manual) 7 (0-12)
[2022-04-14] MEDS: MORPHINE SULFATE INJ 2 MG/ml SYRG IV PRN ×2 (14:00→20:54)
[2022-04-14] MEDS: SODIUM CHLORIDE 0.9% 1,000 ML IV SCH (14:50)
[2022-04-14 16:58] VITALS: BP 96/47
[2022-04-14 22:00] VITALS: BP 90/45
[2022-04-15] VITALS (10 sets, daily range): BP systolic 92–126; BP diastolic 48–66
[2022-04-15] MEDS: MORPHINE SULFATE INJ 2 MG/ml SYRG IV PRN (01:55)
[2022-04-15] MEDS: SODIUM CHLORIDE 0.9% 1,000 ML IV SCH ×2 (04:30→10:17)
[2022-04-15] MEDS ORDERED: LEVOTHYROXINE SODIUM 100 MCG/5 ML INJ IV ONE (10:15)
[2022-04-15] MEDS ORDERED: MIDAZOLAM HCL 2MG/2ML 2ml VIAL (1mg/ml) IV ONE (14:00)
[2022-04-15] MEDS ORDERED: fentaNYL CITRATE 100 MCG/2 ML VL IV ONE (14:00)
[2022-04-15] MEDS ORDERED: MIDAZOLAM HCL 2MG/2ML 2ml VIAL (1mg/ml) ONE (14:05)
[2022-04-15] MEDS ORDERED: fentaNYL CITRATE 100 MCG/2 ML VL ONE (14:05)
[2022-04-15] MEDS: FOLIC ACID 1 MG TAB PO SCH (15:40)
[2022-04-15] MEDS: PYRIDOXINE HCL 50 MG TAB PO SCH (15:41)
[2022-04-16] VITALS (7 sets, daily range): BP systolic 92–117; BP diastolic 48–60
[2022-04-16 05:43] LABS: Urine Bacteria NONE SEEN /hpf (None Seen); Urine Blood Negative /uL (Negative); Urine Mucus FEW (None Seen); Urine Specific Gravity 1.029 (1.001-1.035); Urine WBC 7 /hpf (0 - 5)
[2022-04-16 06:37] LABS: Calcium 8.3 mg/dL (8.5-10.1); Potassium 3.5 mmol/L (3.5-5.1)
[2022-04-16 06:39] LABS: BUN/Creatinine Ratio 13.6
[2022-04-16 07:06] LABS: White Blood Cell 2.5 10^3/uL (4.4-10.8)
[2022-04-16 07:08] LABS: Hematocrit 19.7 % (36.0-46.0); Mean Corpuscular Hgb Conc. 34.3 g/dL (32.0-36.0); Mean Corpuscular Volume 116.6 fL (80.0-100.0); Red Blood Cells 1.69 10^6/uL (4.0-5.20)
[2022-04-16 07:12] LABS: Red Cell Distribution Width 24.6 % (11.8-14.3)
[2022-04-16 07:14] LABS: Hemoglobin 6.7 g/dL (12.2-16.2)
[2022-04-16 07:15] LABS: Band Neutrophils % (manual) 0; Basophils % (manual) 0 (0.0-2.0); Blast Cells 0; Metamyelocytes % 0; Promyelocytes % 0; Reactive Lymphocytes 0
[2022-04-16 08:31] LABS: Alcohol, Urine < 3.0 mg/dL (0-10); Amphetamine Screen, Urine NEGATIVE (NEGATIVE); Barbiturate Scree,Urine NEGATIVE (NEGATIVE); Benzodiazephine Screen, Urine POSITIVE (NEGATIVE); Cannabinoid Screen, Urine NEGATIVE (NEGATIVE); Cocaine Screen, Urine NEGATIVE (NEGATIVE); Opiate Scree,Urine POSITIVE (NEGATIVE); Phencyclidine Screen, Urine NEGATIVE (NEGATIVE)
[2022-04-16 08:47] LABS: Eosinophils % (manual) 4 (0-7); Lymphocytes % (manual) 68 (10.0-50.0); Monocytes % (manual) 4 (0-12); Myelocytes % 1
[2022-04-16 09:07] LABS: Hepatitis B Surface Antibody Negative (Negative)
[2022-04-16] MEDS: PYRIDOXINE HCL 50 MG TAB PO SCH (09:40)
[2022-04-16] MEDS: FOLIC ACID 1 MG TAB PO SCH (09:40)
[2022-04-16] MEDS: LEVOTHYROXINE SODIUM 112 MCG TAB PO SCH (09:40)
[2022-04-16] MEDS: SODIUM CHLORIDE 0.9% 1,000 ML IV SCH (12:41)
[2022-04-16 13:55] LABS: Hepatitis C Antibody Negative (Negative)
[2022-04-16] MEDS ORDERED: POTASSIUM EFFERVESENT TAB 25 MEQ PO ONE (16:00)
[2022-04-17 01:30] VITALS: BP 114/60
[2022-04-17 05:00] VITALS: BP 126/57
[2022-04-17] MEDS: SODIUM CHLORIDE 0.9% 1,000 ML IV SCH (06:31)
[2022-04-17 06:36] LABS: White Blood Cell 2.1 10^3/uL (4.4-10.8)
[2022-04-17 06:41] LABS: Hematocrit 26.1 % (36.0-46.0); Hemoglobin 9.3 g/dL (12.2-16.2); Mean Corpuscular Hemoglobin 38.1 pg (28.0-32.0); Mean Corpuscular Hgb Conc. 35.6 g/dL (32.0-36.0); Mean Corpuscular Volume 106.9 fL (80.0-100.0); Red Blood Cells 2.44 10^6/uL (4.0-5.20)
[2022-04-17 06:51] LABS: Basophils % (manual) 0 (0.0-2.0); Blast Cells 0; Eosinophils % (manual) 0 (0-7); Metamyelocytes % 0; Myelocytes % 0; Promyelocytes % 0; Reactive Lymphocytes 0
[2022-04-17 08:44] VITALS: BP 98/54
[2022-04-17] MEDS: FOLIC ACID 1 MG TAB PO SCH ×2 (09:53→10:24)
[2022-04-17] MEDS: LEVOTHYROXINE SODIUM 112 MCG TAB PO SCH ×2 (09:53→10:24)
[2022-04-17] MEDS: PYRIDOXINE HCL 50 MG TAB PO SCH ×2 (09:53→10:24)
[2022-04-17 12:42] LABS: Band Neutrophils % (manual) 6; Lymphocytes % (manual) 56 (10.0-50.0); Monocytes % (manual) 15 (0-12)
[2022-04-17] MEDS ORDERED: FER325T PO (15:02)
[2022-04-17] MEDS ORDERED: METO25TA5 PO (15:02)
[2022-04-17 15:55] VITALS: BP 98/54
== END 2022-04-17 16:55 | disposition home or self-care (01) | DRG 660 ==
LOC: EDBD 21:59 → ER 22:01 → TELE 04-13 02:25 → TELE-WESTW 04-13 21:27
PROVIDERS: ADMIT Hospitalist; ATTEND Nurse Practitioner Acute Care
PROC: 079T3ZX Drainage of Bone Marrow, Percutaneous Approach, Diagnostic (ICD-10-PCS; 2022-04-15)
PROC: 30233N1 Transfusion of Nonautologous Red Blood Cells into Peripheral Vein, Percutaneous Approach (ICD-10-PCS; principal; 2022-04-16)
DX: D61.818 Other pancytopenia (principal); D53.9 Nutritional anemia, unspecified; I48.0 Paroxysmal atrial fibrillation; N39.0 Urinary tract infection, site not specified; E66.9 Obesity, unspecified; I12.9 Hypertensive chronic kidney disease with stage 1 through stage 4 chronic kidney disease, or unspecified chronic kidney disease; Z20.822 Contact with and (suspected) exposure to COVID-19; E03.9 Hypothyroidism, unspecified; J44.9 Chronic obstructive pulmonary disease, unspecified; N18.32 Chronic kidney disease, stage 3b; E78.5 Hyperlipidemia, unspecified; Z82.49 Family history of ischemic heart disease and other diseases of the circulatory system; Z68.29 Body mass index [BMI] 29.0-29.9, adult; Z83.3 Family history of diabetes mellitus
CPT/HCPCS: 10005; 36415; 71045; 72192; 74176; 77012; 80048; 80053; 80307; 81001; 82306; 82607; 83540; 83550; 83615; 83735; 83880; 84443; 84484; 85007; 85025; 85027; 85045; 85610; 85730; 86038; 86200; 86431; 86706; 86803; 86850; 86880; 86900; 86901; 86920; 87340; 87426; 93005; 93306; 93970; 96365; 96372; G0378; J2250; J3490

== ENCOUNTER 2022-06-20 19:28 | Emergency (ER) | payer MEDICAID ==
[~2022-06-20] VITALS: Ht 162.6 cm; Wt 77.1 kg
[~2022-06-20 19:28] MED LIST changes: +FER325T PO; +METO25TA5 PO
[2022-06-20] MEDS ORDERED: IPRATROPIUM BROM 0.5 MG/2.5ML INH SOL NEB ONE (20:00)
[2022-06-20] MEDS ORDERED: ALBUTEROL SULF 2.5 MG/0.5ML(0.5%) NEB SOLN NEB ONE ×2 (20:00→22:30)
[2022-06-20 20:37] LABS: Basophils # (auto) 0.1 10 ^3/uL (0-0.2); Basophils % (auto) 1.4 % (0.0-2.0); Eosinophils # (auto) 0.8 10 ^3/uL (0-0.8); Eosinophils % (auto) 13.8 % (0.0-7.0); Hematocrit 40.3 % (36.0-46.0); Hemoglobin 13.1 g/dL (12.2-16.2); Lymphocytes # (auto) 2.1 10 ^3/uL (0.4-5.4); Lymphocytes % (auto) 34.5 % (10.0-50.0); Mean Corpuscular Hgb Conc. 32.5 g/dL (32.0-36.0); Mean Corpuscular Volume 92.2 fL (80.0-100.0); Monocytes # (auto) 0.6 10 ^3/uL (0-1.3); Neutrophils # (auto) 2.5 10 ^3/uL (1.6-8.6); Neutrophils % (auto) 41.3 % (37.0-80.0); Nucleated Red Blood Cells % 0.2 %; Red Blood Cells 4.37 10^6/uL (4.0-5.20); Red Cell Distribution Width 14.8 % (11.8-14.3); White Blood Cell 6.2 10^3/uL (4.4-10.8)
[2022-06-20 20:54] LABS: INR 0.95 (0.9-1.15); Partial Thromboplastin Time 28.1 sec (24.6-33.4)
[2022-06-20 20:56] LABS: Albumin 3.9 g/dL (3.4-5.0); BUN/Creatinine Ratio 17.6; Calcium 8.9 mg/dL (8.5-10.1); Magnesium 2.2 mg/dL (1.6-2.6); Potassium 3.6 mmol/L (3.5-5.1)
[2022-06-20 20:58] LABS: Bilirubin, Total 0.3 mg/dL (0.2-1.0); Total Protein 7.5 g/dL (6.4-8.2)
[2022-06-20] MEDS ORDERED: DexAMETHasone SOD PHOS 10MG/1ML VIAL INJ IM ONE (22:30)
[2022-06-21] MEDS ORDERED: ALBUAER3 IN (01:54)
[2022-06-21] MEDS ORDERED: AZIT500T PO (01:54)
[2022-06-21] MEDS ORDERED: PRED20TA2 PO (01:54)
[2022-06-21 02:21] VITALS: BP 148/86
== END 2022-06-21 02:58 | disposition home or self-care (01) ==
LOC: ER 19:28
DX: J45.901 Unspecified asthma with (acute) exacerbation (principal); F41.9 Anxiety disorder, unspecified; I10 Essential (primary) hypertension; Z98.890 Other specified postprocedural states
CPT/HCPCS: 36415; 71045; 80053; 83735; 83880; 84484; 85025; 85610; 85730; 94640; 96372; 99284; J1100; J7644